=== PATIENT | female | born 1930 | race Hispanic/Latino ===

== ENCOUNTER 2018-11-20 14:03 | Inpatient (IN) | payer MEDICARE ==
[2018-11-20 14:10] VITALS: BMI 25.4
[2018-11-20] MEDS ORDERED: Sodium Chloride 0.9% 1,000 ML IV STA (14:40)
[2018-11-20 14:51] LABS: BASO # 0.01 K/mm3 (0.0-2.0); BASO % 0.1 % (0.0-3.0); HEMOGLOBIN 10.5 g/dL (12.0-16.0); LYMPH # 0.7 (1.2-3.4); LYMPH % 6.8 % (22.0-35.0); MEAN CELL VOLUME 99.4 fl (80.0-105.0); MEAN CORPUSCULAR HGB CONC 31.2 g/dl (31.0-37.0); MEAN PLATELET VOLUME 10.6 fl (7.0-11.0); MONO # 0.4 (0.1-0.6); MONO % 4.3 % (1.0-6.0); RBC 3.39 10^6/uL (3.5-6.1); RED CELL DISTRIBUTION WIDTH 14.9 % (11.5-14.5); WHITE BLOOD COUNT 9.6 10^3/uL (4.5-11.0)
[2018-11-20 15:00] LABS: INR 1.28; PARTIAL THROMBOPLASTIN TIME 33.7 Seconds (26.9-38.3); PROTHROMBIN TIME 14.2 SECONDS (9.4-12.5)
[2018-11-20 15:02] LABS: ALBUMIN 3.7 g/dL (3.0-4.8); ALT/SGPT 35 U/L (7-56); AST/SGOT 39 U/L (14-36); BLOOD UREA NITROGEN 17 mg/dL (7-21); GFR NON-AFRICAN AMERICAN > 60
--- NOTE | 2018-11-20 15:10 | ED PDOC ---
Arrival/HPI - General Chief Complaint: Trauma Time Seen by Provider: 11/20/18 14:05 Historian: Patient - History of Present Illness Narrative History of Present Illness (Text): 11/20/18 15:06 88yo female with past medical history of Anemia bib EMS with complaint of right hip and b/l knee pain s/p trauma last night. Patient states she fell when she wanted to turn on her lamp and couldn't get up from the floor. She states her n eighbor was the one that EMS. She denies LOC, urinary/fecal incontinence, back pain, dizziness, nausea, vomiting, any other complaint. Past Medical History - Provider Review Nursing Documentation Reviewed: Yes - Infectious Disease Hx of Infectious Diseases: None - Tetanus Immunization Tetanus Immunization: Unknown - Cardiac Hx Peripheral Edema: Yes (bilaeral feet and ankles) - Renal Hx Kidney Stones: Yes (removed at [facility]) - Hematological/Oncological Hx Anemia: Yes - Integumentary Other/Comment: bruises to right hip and thigh,right 2nd toe .5cm brown wound, left 2nd toe .5cm scab, dirt between left toes, bilateral groin and under abd pink, scrape to right inner foot - Musculoskeletal/Rheumatological Hx Falls: Yes - Psychiatric Hx Depression: No Hx Emotional Abuse: No Hx Physical Abuse: No Hx Substance Use: No - Past Surgical History Past Surgical History: Unable to Obtain - Surgical History Hx Cholecystectomy: Yes - Suicidal Assessment Feels Threatened In Home Enviroment: No Family/Social History - Physician Review Nursing Documentation Reviewed: Yes Family/Social History: Unknown Family HX Smoking Status: Never Smoked Hx Alcohol Use: No Hx Substance Use: No Hx Substance Use Treatment: No Allergies/Home Meds Allergies/Adverse Reactions: Allergies No Known Allergies Allergy (Verified 03/08/14 10:44) Home Medications: Home Meds Medication Instructions Recorded Confirmed RX: No Known Home Med 11/20/18 11/20/18 Review of Systems - Physician Review All systems were reviewed & negative as marked: Yes - Review of Systems Constitutional: Normal Eyes: Normal ENT: Normal Respiratory: Normal Cardiovascular: Normal Gastrointestinal: Normal Genitourinary Female: Normal Musculoskeletal: Arthralgias (B/L hip and knee pain) Skin: Normal Neurological: Normal Endocrine: Normal Hemo/Lymphatic: Normal Psychiatric: Normal Physical Exam Vital Signs Reviewed: Yes Vital Signs Temp Pulse Resp BP Pulse Ox 11/20/18 14:22 97.8 F 64 18 120/55 L 100 Temperature: Afebrile Blood Pressure: Normal Pulse: Regular Respiratory Rate: Normal Appearance: Positive for: Well-Appearing, Non-Toxic, Comfortable Pain Distress: None Mental Status: Positive for: Alert and Oriented X 3 - Systems Exam Head: Present: Atraumatic, Normocephalic Pupils: Present: PERRL Extroacular Muscles: Present: EOMI Conjunctiva: Present: Normal Mouth: Present: Moist Mucous Membranes Neck: Present: Normal Range of Motion Respiratory/Chest: Present: Clear to Auscultation, Good Air Exchange. No: Respiratory Distress, Accessory Muscle Use Cardiovascular: Present: Regular Rate and Rhythm, Normal S1, S2. No: Murmurs Abdomen: No: Tenderness, Distention, Peritoneal Signs Back: Present: Normal Inspection Upper Extremity: Present: Normal Inspection. No: Cyanosis, Edema Lower Extremity: Present: NORMAL PULSES, Tenderness (Right lateral hip and b/l knee), Neurovascularly Intact, Other (Inverted right foot noted). No: Edema, Normal ROM (Limited on both legs secondary to pain), Swelling, Erythema Neurological: Present: GCS=15, CN II-XII Intact, Speech Normal Skin: Present: Warm, Dry, Normal Color. No: Rashes Psychiatric: Present: Alert, Oriented x 3, Normal Insight, Normal Concentration Medical Decision Making ED Course and Treatment: 11/20/18 17:22 88yo female bib EMS for b/l LE pain s/p trauma last night. PT reports mechanical fall, while trying to turn her light. she was AAO x3 in Emergency department. Neurologically intact. Labs Head CT Hip and knee xray EKG 1LNS Reassess 11/20/18 17:29 EKG NSR @63bpm. LAD Lab was reviewed and elevated CPK was noted, pt is hydrated in ED Head CT IMPRESSION: No intracranial hemorrhage. chest xray Limited study. Elevation of the right hemidiaphragm. Right upper lobe scarring/atelectasis. Cardiomediastinal silhouette appears stable. Marked prominence the right hilum and mediastinum persists. CT of the chest with IV contrast may be considered for further evaluation. B/L hip xray IMPRESSION: No evidence of acute displaced fracture nor dislocation. No evidence of dislocation. Degenerative osteoarthritis both hip joints B/L Knee IMPRESSION: No acute fractures. There is mild lateral joint space narrowing right knee. PT lives by herself and has been unable to ambulate or stand since last night. She will be admitted. Case was DW Dr. stinson who accepted pt for admission. - Lab Interpretations Lab Results: PT 14.2 SECONDS (9.4-12.5) H 11/20/18 14:30 INR 1.28 11/20/18 14:30 APTT 33.7 Seconds (26.9-38.3) 11/20/18 14:30 Total Bilirubin 1.7 mg/dL (0.2-1.3) H 11/20/18 14:30 AST 39 U/L (14-36) H 11/20/18 14:30 ALT 35 U/L (7-56) 11/20/18 14:30 Alkaline Phosphatase 71 U/L (38-126) 11/20/18 14:30 Total Protein 7.3 g/dL (5.8-8.3) 11/20/18 14:30 Albumin 3.7 g/dL (3.0-4.8) 11/20/18 14:30 Globulin 3.6 gm/dL 11/20/18 14:30 Albumin/Globulin Ratio 1.0 (1.1-1.8) L 11/20/18 14:30 - RAD Interpretation Radiology Orders: 11/20/18 14:20 Hip Bilateral [HIP MIN 3V W/ PELVIS ROSA] [RAD] Stat 11/20/18 14:39 HEAD W/O CONTRAST [CT] Stat KNEE W PATELLA BILAT 3 VIEW [RAD] Stat - Medication Orders Current Medication Orders: Sodium Chloride (Sodium Chloride 0.9%) 1,000 mls @ 100 mls/hr IV .Q10H STA Stop: 11/21/18 00:39 Disposition/Present on Arrival - Present on Arrival Any Indicators Present on Arrival: No History of DVT/PE: No History of Uncontrolled Diabetes: No Urinary Catheter: No History of Decub. Ulcer: No History Surgical Site Infection Following: None - Disposition Have Diagnosis and Disposition been Completed?: Yes Diagnosis: Rhabdomyolysis, Hip pain, Inability to ambulate due to hip, Knee pain Disposition: HOSPITALIZED Disposition Time: 17:00 Patient Plan: Admission Patient Problems: Current Active Problems Problem Status Onset Hip pain Acute Inability to ambulate due to hip Acute Knee pain Acute Rhabdomyolysis Acute Condition: FAIR
--- NOTE | 2018-11-20 15:58 | CT ---
Date of service: 11/20/2018 PROCEDURE: CT HEAD WITHOUT CONTRAST. HISTORY: s/p trauma COMPARISON: None available. TECHNIQUE: Axial computed tomography images were obtained through the head/brain without intravenous contrast. Radiation dose: Total exam DLP = 1049.48 mGy-cm. This CT exam was performed using one or more of the following dose reduction techniques: Automated exposure control, adjustment of the mA and/or kV according to patient size, and/or use of iterative reconstruction technique. FINDINGS: HEMORRHAGE: No intracranial hemorrhage. BRAIN: No mass effect or edema. Mild periventricular white matter ischemic disease and atrophy. VENTRICLES: Unremarkable. No hydrocephalus. CALVARIUM: Unremarkable. PARANASAL SINUSES: Unremarkable as visualized. No significant inflammatory changes. MASTOID AIR CELLS: Unremarkable as visualized. No inflammatory changes. OTHER FINDINGS: None. IMPRESSION: No intracranial hemorrhage.
[2018-11-20 16:17] LABS: CK MB% 2.1 % (2.5-3.0); CK-MB 9.8 ng/mL (0.0-3.6); TROPONIN I 0.04 ng/mL
--- NOTE | 2018-11-20 16:33 | RAD ---
Date of service: 11/20/2018 PROCEDURE: Pelvis and bilateral hips 12/07/2018. HISTORY: Right hip pain status post trauma COMPARISON: Comparison made with prior pelvis radiograph 03/08/2014. TECHNIQUE: AP view of the pelvis and both hips and frogleg lateral views both hips performed FINDINGS: No definitive evidence of acute displaced fracture... The osseous structures intact with both femoral heads appropriately located within the respective acetabula. Degenerative osteoarthritis both hip joints IMPRESSION: No evidence of acute displaced fracture nor dislocation. No evidence of dislocation. Degenerative osteoarthritis both hip joints
--- NOTE | 2018-11-20 17:23 | RAD ---
Date of service: 11/20/2018 PROCEDURE: Bilateral Knee Radiographs. HISTORY: knee pain s/p trauma COMPARISON: None. FINDINGS: BONES: No evidence of acute displaced fracture or dislocation. The osseous structures intact. Degenerative changes right JOINTS: There is questionable mild lateral joint space narrowing right knee versus sequela of patient positioning. Small anterior patella enthesophyte formation. There is also mild anterior patella enthesophyte formation left knee as well. SOFT TISSUES: Right Knee: Normal. Left Knee: Normal. JOINT EFFUSION: Right Knee: None. Left Knee: None. OTHER FINDINGS: Mild vascular calcifications IMPRESSION: No acute fractures. There is mild lateral joint space narrowing right knee.
--- NOTE | 2018-11-20 17:46 | RAD ---
HISTORY: admission COMPARISON: Chest x-ray performed 03/08/14, CT chest with IV contrast performed 03/10/14 TECHNIQUE: Chest, one view. FINDINGS: LUNGS: Examination limited by habitus, hypoinflation, and patient obliquity. Right upper lobe scarring/atelectasis. Please note that chest x-ray has limited sensitivity for the detection of pulmonary masses. PLEURA: No significant pleural effusion identified. No definite pneumothorax . CARDIOVASCULAR: Cardiomediastinal silhouette appears stable. Marked prominence the right hilum and mediastinum persists. OSSEOUS STRUCTURES: Osseous demineralization. Degenerative changes. VISUALIZED UPPER ABDOMEN: Elevation of the right hemidiaphragm. OTHER FINDINGS: None. IMPRESSION: Limited study. Elevation of the right hemidiaphragm. Right upper lobe scarring/atelectasis. Cardiomediastinal silhouette appears stable. Marked prominence the right hilum and mediastinum persists. CT of the chest with IV contrast may be considered for further evaluation.
--- NOTE | 2018-11-20 20:12 | CARD ---
APPROVED REPORT Date of service: 11/20/2018 EKG Measurement Heart [id number] <Conclusion> Normal sinus rhythm Left axis deviation Possible Anterior infarct, age undetermined Abnormal ECG
[2018-11-20] MEDS ORDERED: Pneumococcal 23-Valent Vaccine IM ONE (22:32)
[2018-11-20] MEDS ORDERED: Influenza Vaccine 60 mcg/0.5 mL SYR (4YR UP) IM ONE (22:32)
--- NOTE | 2018-11-21 08:28 | HP ---
DATE OF EXAM: 11/21/2018 CHIEF COMPLAINT AND HISTORY OF PRESENT ILLNESS: This is an 88-year-old female who is coming into the hospital with fall. The patient was brought in by EMS because of right hip pain and knee pain. The patient says that she had fallen last night, she had difficulty with walking. She went to turn on her and had a fall and had a difficult time in standing up. She says she lives alone. She was found by her neighbor and the ambulance was called. She denies any loss of consciousness. She has no complaint of any headaches or dizziness. No fevers or chills. No nausea, no vomiting, no abdominal pain, no back pain, no dysuria, no frequency, no nocturia. ALLERGIES: NO KNOWN DRUG ALLERGIES. REVIEW OF SYSTEMS: Referral that is all other review of symptoms within normal limits. She says she has been able to eat. SOCIAL HISTORY: She does not smoke, drink, or use drugs. She lives alone. PAST MEDICAL HISTORY: Kidney stones and osteoarthritis. PAST SURGICAL HISTORY: Cholecystectomy. PHYSICAL EXAMINATION: VITAL SIGNS: Temperature is 97.3, pulse of 80, blood pressure 110/63, respirations 18, O2 saturation 100%. Height is 5 feet, weight is 130 pounds. BMI is 25.4. GENERAL: The patient is lying in bed, comfortable, and in no acute distress. HEENT: Atraumatic and normocephalic. Anicteric sclerae. Moist mucosa. [place] conjunctivae. No oral lesions. NECK: No JVD, anterior and posterior adenopathy, thyromegaly, or bruits. CARDIOVASCULAR: S1 and S2 regular. No murmurs, rubs or gallops. LUNGS: Clear to auscultation bilaterally. No wheezes, rales, or rhonchi. ABDOMEN: Bowel sounds are positive. Soft, nontender and nondistended. No hepatosplenomegaly. No rebound and no guarding. EXTREMITIES: No cyanosis, clubbing, or edema. NEUROLOGIC: No facial asymmetry. Tongue is midline. No uvula deviation. Power is 5/5 upper extremities and lower extremities. Sensation intact in upper extremities and lower extremities. PSYCHIATRIC: She is awake, alert and oriented x3. No anxiety or depression. She has normal affect. GENITOURINARY: No CVA tenderness. VASCULAR: 2+ pulses in the carotid pulses and pedal pulses. SKIN: No erythema or nodules. SPINE: Shows normal curvature. LABORATORY DATA: White count of 9.6, hemoglobin 10.5, platelet count is 221. INR is 1.2. Sodium is 139, potassium 3.8, creatinine 0.7, alk phos of 71, troponin 0.04. Chest x-ray shows elevation of right hemidiaphragm, right upper lobe scarring. Bilateral knees shows no acute fractures. There is mild lateral joint space narrowing in the right knees. CT of the head done shows no intracranial hemorrhages. EKG shows sinus rhythm, left axis deviation with a heart rate of 63. Bilateral hip and pelvis x-ray shows no evidence of acute displaced fracture, no dislocation. There is degenerative osteoarthritis in both hips. ASSESSMENT: 1. Fall. 2. Gait instability. 3. Frailty. 4. Nephrolithiasis. 5. Anemia. PLAN: The patient is going to be admitted to the hospital. She lives alone and had a fall. She has significant arthritis and deconditioned. She will most likely need subacute rehab. I will order physical therapy. She received 1 liter of fluid. She is on Tylenol p.r.n. for pain. The patient is currently comfortable. We will speak to the patient's nephew Cricket to give an update. Nick Denny MD
[2018-11-22] MEDS ORDERED: TraMADol/Apap 37.5/325 mg Tab PO PRN (14:56)
--- NOTE | 2018-11-22 20:03 | PN ---
DATE: 11/22/2018 SUBJECTIVE: The patient is an 88-year-old, seen and examined, complained of left leg pain in the thigh area. She fell at home. Nephew by the bedside, who brought her doughnuts and she seems to be very much interested in eating. PHYSICAL EXAMINATION GENERAL: She is awake, alert, oriented, and able to communicate. VITAL SIGNS: She is afebrile, pulse 72, respirations 18, and blood pressure 115/64. LUNGS: Bilateral fair airflow. No rhonchi or crackle. HEART: S1 and S2 audible. ABDOMEN: Soft and nontender. No rebound. No guarding. NEUROLOGIC: The patient is awake and alert, but somewhat confused and disoriented. EXTREMITIES: Complain of pain in the left knee and the thigh; however, she is able to bend and extend her knee. LABORATORY DATA: There is no new lab available today; however, she had x-ray done. No acute fracture, mild lateral joint space narrowing seen. ASSESSMENT AND PLAN: 1. Status post fall. 2. Deconditioning, difficulty walking. 3. Mild dementia. 4. Left knee osteoarthritis. 5. History of generalized osteoarthritis. 6. History of nephrolithiasis. 7. Chronic anemia. PLAN: Currently, the patient is on IV fluids. I will request to give Mobic daily along with Protonix and will give her tramadol as needed for [id number] pain and need physical therapy evaluation and gait training, probably a good candidate for TCU. Santiago Lambert MD
[2018-11-23 08:30] LABS: BASO # 0.02 K/mm3 (0.0-2.0); BASO % 0.3 % (0.0-3.0); EOS # 0.1 (0.0-0.7); EOS % 1.7 % (1.5-5.0); HEMOGLOBIN 8.9 g/dL (12.0-16.0); LYMPH # 1.6 (1.2-3.4); LYMPH % 26.8 % (22.0-35.0); MEAN CORPUSCULAR HGB CONC 30.7 g/dl (31.0-37.0); MEAN PLATELET VOLUME 10.9 fl (7.0-11.0); MONO # 0.4 (0.1-0.6); MONO % 6.4 % (1.0-6.0); RBC 2.87 10^6/uL (3.5-6.1); WHITE BLOOD COUNT 5.9 10^3/uL (4.5-11.0)
[2018-11-23 08:44] LABS: ALT/SGPT 17 U/L (7-56); AST/SGOT 26 U/L (14-36); BLOOD UREA NITROGEN 31 mg/dL (7-21); CALCIUM 8.2 mg/dL (8.4-10.5); GFR NON-AFRICAN AMERICAN 52
--- NOTE | 2018-11-23 10:13 | CP.PCM.APN ---
Subjective - Date & Time of Evaluation Date of Evaluation: 11/23/18 Time of Evaluation: 09:45 - Subjective Subjective: Pt seen and examined at bedside. In no acute distress. No acute events overnight. Objective - Vital Signs/Intake and Output Vital Signs (last 24 hours): Temp Pulse Resp BP Pulse Ox 98 F 57 L 17 130/62 95 11/23/18 06:00 11/23/18 06:00 11/23/18 06:00 11/23/18 06:00 11/23/18 06:00 Intake and Output: 11/23/18 11/23/18 06:59 18:59 Intake Total 360 Balance 360 - Medications Medications: Current Medications Acetaminophen (Tylenol 325mg Tab) 650 mg PO Q6H PRN PRN Reason: Pain, Mild (1-3) Last Admin: 11/22/18 11:26 Dose: 650 mg Meloxicam (Mobic) 15 mg PO DAILY FADY Last Admin: 11/23/18 09:24 Dose: 15 mg Tramadol/Acetaminophen (Ultracet 37.5/325 Mg) 1 tab PO Q6H PRN PRN Reason: Pain, moderate (4-7) - Labs Labs: 11/23/18 08:00 11/23/18 08:00 PT 14.2 SECONDS (9.4-12.5) H 11/20/18 14:30 INR 1.28 11/20/18 14:30 APTT 33.7 Seconds (26.9-38.3) 11/20/18 14:30 - Constitutional Appears: No Acute Distress - Head Exam Head Exam: NORMOCEPHALIC - Eye Exam Eye Exam: Normal appearance - Neck Exam Neck Exam: Full ROM - Respiratory Exam Respiratory Exam: NORMAL BREATHING PATTERN - Cardiovascular Exam Cardiovascular Exam: REGULAR RHYTHM, +S1, +S2 - GI/Abdominal Exam GI & Abdominal Exam: Soft, Normal Bowel Sounds - Rectal Exam Rectal Exam: Deferred - Extremities Exam Extremities Exam: Normal Inspection - Neurological Exam Neurological Exam: Alert, Awake Assessment and Plan - Assessment and Plan (Free Text) Assessment: Pt is an 88yo female with past medical history of anemia who was brought in by EMS with complaint of right hip and b/l knee pain s/p fall. ITS Impressions Hip/Pelvis X-Ray 11/20/18 14:20 IMPRESSION: No evidence of acute displaced fracture nor dislocation. No evidence of dislocation. Degenerative osteoarthritis both hip joints Head CT 11/20/18 14:39 IMPRESSION: No intracranial hemorrhage. Knee X-Ray 11/20/18 14:39 IMPRESSION: No acute fractures. There is mild lateral joint space narrowing right knee. Chest X-Ray 11/20/18 17:06 IMPRESSION: Limited study. Elevation of the right hemidiaphragm. Right upper lobe scarring/atelectasis. Cardiomediastinal silhouette appears stable. Marked prominence the right hilum and mediastinum persists. CT of the chest with IV contrast may be considered for further evaluation. Plan: Physical Therapy - recommends [facility] Pt medically cleared for dc per PMD SW/CM for dc planning Meds per MAR Will continue to follow
[2018-11-23 16:04] VITALS: BP 114/60; PULSE 78; RESP 18; TEMP 98.2; O2SAT 98
--- NOTE | 2018-11-23 16:56 | CP.PCM.PN ---
<ErnestinaStefanie - Last Filed: 11/23/18 18:15> Subjective - Date & Time of Evaluation Date of Evaluation: 11/23/18 Time of Evaluation: 07:00 - Subjective Subjective: Pgy3 Medicine progress note for Dr. Denny Patient seen and examined at bedside. No acute events overnight. Patient complained of some body aches but otherwise denied fever, headache, dizziness, chest pain, SOB, cough, abd pain, nausea, vomiting, bowel/bladder complaints, swelling in her legs bilaterally. Patient is tolerating PO diet and making good urine. Objective - Vital Signs/Intake and Output Vital Signs (last 24 hours): Temp Pulse Resp BP Pulse Ox 98.2 F 78 18 114/60 98 11/23/18 14:00 11/23/18 14:00 11/23/18 14:00 11/23/18 14:00 11/23/18 14:00 Intake and Output: 11/23/18 11/23/18 06:59 18:59 Intake Total 360 600 Balance 360 600 - Medications Medications: Current Medications Acetaminophen (Tylenol 325mg Tab) 650 mg PO Q6H PRN PRN Reason: Pain, Mild (1-3) Last Admin: 11/22/18 11:26 Dose: 650 mg Meloxicam (Mobic) 15 mg PO DAILY FADY Last Admin: 11/23/18 09:24 Dose: 15 mg Tramadol/Acetaminophen (Ultracet 37.5/325 Mg) 1 tab PO Q6H PRN PRN Reason: Pain, moderate (4-7) - Labs Labs: 11/23/18 08:00 11/23/18 08:00 PT 14.2 SECONDS (9.4-12.5) H 11/20/18 14:30 INR 1.28 11/20/18 14:30 APTT 33.7 Seconds (26.9-38.3) 11/20/18 14:30 - Constitutional Appears: Non-toxic, No Acute Distress - Head Exam Head Exam: ATRAUMATIC, NORMAL INSPECTION, NORMOCEPHALIC - Eye Exam Eye Exam: EOMI, Normal appearance. absent: Conjunctival injection, Scleral icterus - ENT Exam ENT Exam: Mucous Membranes Moist - Neck Exam Neck Exam: Full ROM - Respiratory Exam Respiratory Exam: Clear to Ausculation Bilateral, NORMAL BREATHING PATTERN. absent: Accessory Muscle Use, Rales, Rhonchi, Wheezes, Respiratory Distress - Cardiovascular Exam Cardiovascular Exam: RRR, +S1, +S2. absent: Murmur - GI/Abdominal Exam GI & Abdominal Exam: Soft, Normal Bowel Sounds. absent: Firm, Tenderness - Extremities Exam Extremities Exam: Normal Capillary Refill. absent: Pedal Edema, Tenderness - Neurological Exam Neurological Exam: Alert, Awake, Oriented x3 - Psychiatric Exam Psychiatric exam: Normal Affect, Normal Mood - Skin Skin Exam: Dry, Intact Assessment and Plan - Assessment and Plan (Free Text) Assessment: - Fall - Gait instability - Frailty - Nephrolithiasis - Anemia - Arthritis Plan: Patient's vitals, blood work, and imaging noted in chart. Patient's pain is well controlled on current regimen. Patient walked with PT who recommended [facility]. Will reach out to family regarding discharge plan as patient is refusing LOTUS and would like to go home. Discussed with Dr. Eduin Do pgy3 <Nick Denny - Last Filed: 11/23/18 20:14> Objective - Vital Signs/Intake and Output Vital Signs (last 24 hours): Temp Pulse Resp BP Pulse Ox 98.2 F 78 18 114/60 98 11/23/18 14:00 11/23/18 14:00 11/23/18 14:00 11/23/18 14:00 11/23/18 14:00 Intake and Output: 11/23/18 11/24/18 18:59 06:59 Intake Total 600 Balance 600 - Medications Medications: Current Medications Acetaminophen (Tylenol 325mg Tab) 650 mg PO Q6H PRN PRN Reason: Pain, Mild (1-3) Last Admin: 11/22/18 11:26 Dose: 650 mg Meloxicam (Mobic) 15 mg PO DAILY FADY Last Admin: 11/23/18 09:24 Dose: 15 mg Tramadol/Acetaminophen (Ultracet 37.5/325 Mg) 1 tab PO Q6H PRN PRN Reason: Pain, moderate (4-7) - Labs Labs: 11/23/18 08:00 11/23/18 08:00 PT 14.2 SECONDS (9.4-12.5) H 11/20/18 14:30 INR 1.28 11/20/18 14:30 APTT 33.7 Seconds (26.9-38.3) 11/20/18 14:30 Assessment and Plan - Assessment and Plan (Free Text) Plan: Pt seen and examined by me. I have reviewed the note of the medical doctor md/medical director and I agree with it. I have discussed the assessment and plan with the resident. I have reviewed the medications and the last labs. Pt had a fall. She does not want to go to [facility]. She is asking to go home with her nephew, who will provide extra help at home. Pt is eating well and has no pain. Pt is frail.
--- NOTE | 2018-11-25 07:43 | CP.PCM.DIS ---
<Stefanie Do - Last Filed: 11/25/18 10:20> Provider - Provider Date of Admission: 11/20/18 17:01 Attending physician: Nick Denny MD Primary care physician: Chuy Granados MD Consults: 11/20/18 22:32 Case Management Referral Routine Comment: NEEDS ASSISTANCE AT HOME.LIVES AT [facility] Physician Instructions: Reason For Exam: EVALUATION Reason for Referral: [employer] Eval Nursing Referral for Wound Care Routine Comment: BRUISES FROM FALL Physician Instructions: Reason For Exam: EVALUATION 11/20/18 22:36 Social Work Referral Routine Comment: DISCHARGE PLANNING WITH ASSISTANCE AT HOME Physician Instructions: Reason For Exam: EVALUATION Time Spent in preparation of Discharge (in minutes): 35 Hospital Course - Lab Results Lab Results: Most Recent Lab Values WBC 5.9 10^3/uL (4.5-11.0) D 11/23/18 08:00 RBC 2.87 10^6/uL (3.5-6.1) L 11/23/18 08:00 Hgb 8.9 g/dL (12.0-16.0) L 11/23/18 08:00 Hct 29.0 % (36.0-48.0) L 11/23/18 08:00 MCV 101.0 fl (80.0-105.0) 11/23/18 08:00 MCH 31.0 pg (25.0-35.0) 11/23/18 08:00 MCHC 30.7 g/dl (31.0-37.0) L 11/23/18 08:00 RDW 15.0 % (11.5-14.5) H 11/23/18 08:00 Plt Count 185 10^3/uL (120.0-450.0) 11/23/18 08:00 MPV 10.9 fl (7.0-11.0) 11/23/18 08:00 Neut % (Auto) 64.8 % (50.0-68.0) 11/23/18 08:00 Lymph % (Auto) 26.8 % (22.0-35.0) 11/23/18 08:00 [place] % (Auto) 6.4 % (1.0-6.0) H 11/23/18 08:00 Eos % (Auto) 1.7 % (1.5-5.0) 11/23/18 08:00 Baso % (Auto) 0.3 % (0.0-3.0) 11/23/18 08:00 Lymph # (Auto) 1.6 (1.2-3.4) 11/23/18 08:00 [place] # (Auto) 0.4 (0.1-0.6) 11/23/18 08:00 Eos # (Auto) 0.1 (0.0-0.7) 11/23/18 08:00 Baso # (Auto) 0.02 K/mm3 (0.0-2.0) 11/23/18 08:00 Absolute Neuts (auto) 3.85 (1.4-6.5) 11/23/18 08:00 PT 14.2 SECONDS (9.4-12.5) H 11/20/18 14:30 INR 1.28 11/20/18 14:30 APTT 33.7 Seconds (26.9-38.3) 11/20/18 14:30 Sodium 140 mmol/L (132-148) 11/23/18 08:00 Potassium 3.7 mmol/L (3.6-5.0) 11/23/18 08:00 Chloride 110 mmol/L (98-107) H 11/23/18 08:00 Carbon Dioxide 28 mmol/L (21-33) 11/23/18 08:00 Anion Gap 6 (10-20) L 11/23/18 08:00 BUN 31 mg/dL (7-21) H 11/23/18 08:00 Creatinine 1.0 mg/dl (0.7-1.2) 11/23/18 08:00 Est GFR ( Amer) > 60 11/23/18 08:00 Est GFR (Non-Af Amer) 52 11/23/18 08:00 Random Glucose 90 mg/dL (70-110) 11/23/18 08:00 Calcium 8.2 mg/dL (8.4-10.5) L 11/23/18 08:00 Phosphorus 3.2 mg/dL (2.5-4.5) 11/23/18 08:00 Magnesium 1.9 mg/dL (1.7-2.2) 11/23/18 08:00 Total Bilirubin 0.5 mg/dL (0.2-1.3) 11/23/18 08:00 AST 26 U/L (14-36) 11/23/18 08:00 ALT 17 U/L (7-56) 11/23/18 08:00 Alkaline Phosphatase 55 U/L (38-126) 11/23/18 08:00 Lactate Dehydrogenase 493 U/L (333-699) 11/20/18 14:30 Total Creatine Kinase 76 U/L (35-230) 11/23/18 08:00 CK-MB (CK-2) 9.8 ng/mL (0.0-3.6) H 11/20/18 14:30 CK-MB (CK-2) % 2.1 % (2.5-3.0) L 11/20/18 14:30 Troponin I 0.04 ng/mL D 11/20/18 14:30 Total Protein 6.0 g/dL (5.8-8.3) 11/23/18 08:00 Albumin 3.0 g/dL (3.0-4.8) 11/23/18 08:00 Globulin 3.1 gm/dL 11/23/18 08:00 Albumin/Globulin Ratio 1.0 (1.1-1.8) L 11/23/18 08:00 - Hospital Course Hospital Course: Upon admission 88yo female PMHx OA and nephlithiasis presented s/p fall. Patient came in with right hip and knee pain and difficulty ambulating. She was found by her neighbor after her fall. She denied any LOC or hitting her head and on ROS denied any headache, dizziness, fever, chills, nausea, vomiting, abd pain, back pain, urinary complaints. Hospital Course Patient admitted to med/surg. Head CT unremarkable. Hip/pelvis xray was unremarkable for fracture/dislocation and showed OA of both hips. Knee xray was also unremarkable for fractures. She had a slightly elevated CK 468 and was put on fluids with monitoring of UO. The patient was comfortable and clinically improved. She walked with PT who recommended LOTUS however patient refused and wanted to go home. Patient's nephew Cricket Berkowitz was spoken with in detail and patient was medically optimized for discharge home with outpatient follow up. Discharge Exam - Additional Findings Additional findings: - Constitutional Appears: Non-toxic, No Acute Distress - Head Exam Head Exam: ATRAUMATIC, NORMAL INSPECTION, NORMOCEPHALIC - Eye Exam Eye Exam: EOMI, Normal appearance. absent: Conjunctival injection, Scleral icterus - ENT Exam ENT Exam: Mucous Membranes Moist - Neck Exam Neck Exam: Full ROM - Respiratory Exam Respiratory Exam: Clear to Ausculation Bilateral, NORMAL BREATHING PATTERN. absent: Accessory Muscle Use, Rales, Rhonchi, Wheezes, Respiratory Distress - Cardiovascular Exam Cardiovascular Exam: RRR, +S1, +S2. absent: Murmur - GI/Abdominal Exam GI & Abdominal Exam: Soft, Normal Bowel Sounds. absent: Firm, Tenderness - Extremities Exam Extremities Exam: Normal Capillary Refill. absent: Pedal Edema, Tenderness - Neurological Exam Neurological Exam: Alert, Awake, Oriented x3 - Psychiatric Exam Psychiatric exam: Normal Affect, Normal Mood - Skin Skin Exam: Dry, Intact Discharge Plan - Follow Up Plan Condition: FAIR Disposition: HOME/ ROUTINE Instructions: Rhabdomyolysis, Osteoarthritis, Preventing Falls in the Older Adult, Swelling Additional Instructions: PATIENT BEING DISCHARGE IN CARE OF NEPHEW TO FOLLOW UP WITH A PRIMARY MEDICAL DOCTOR Referrals: Chuy Granados MD [Primary Care Provider] - <Nick Denny - Last Filed: 11/25/18 17:09> Provider - Provider Date of Admission: 11/20/18 17:01 Attending physician: Nick Denny MD Primary care physician: Chuy Granados MD Consults: 11/20/18 22:32 Case Management Referral Routine Comment: NEEDS ASSISTANCE AT HOME.LIVES AT [facility] Physician Instructions: Reason For Exam: EVALUATION Reason for Referral: [employer] Eval Nursing Referral for Wound Care Routine Comment: BRUISES FROM FALL Physician Instructions: Reason For Exam: EVALUATION 11/20/18 22:36 Social Work Referral Routine Comment: DISCHARGE PLANNING WITH ASSISTANCE AT HOME Physician Instructions: Reason For Exam: EVALUATION Hospital Course - Lab Results Lab Results: Most Recent Lab Values WBC 5.9 10^3/uL (4.5-11.0) D 11/23/18 08:00 RBC 2.87 10^6/uL (3.5-6.1) L 11/23/18 08:00 Hgb 8.9 g/dL (12.0-16.0) L 11/23/18 08:00 Hct 29.0 % (36.0-48.0) L 11/23/18 08:00 MCV 101.0 fl (80.0-105.0) 11/23/18 08:00 MCH 31.0 pg (25.0-35.0) 11/23/18 08:00 MCHC 30.7 g/dl (31.0-37.0) L 11/23/18 08:00 RDW 15.0 % (11.5-14.5) H 11/23/18 08:00 Plt Count 185 10^3/uL (120.0-450.0) 11/23/18 08:00 MPV 10.9 fl (7.0-11.0) 11/23/18 08:00 Neut % (Auto) 64.8 % (50.0-68.0) 11/23/18 08:00 Lymph % (Auto) 26.8 % (22.0-35.0) 11/23/18 08:00 [place] % (Auto) 6.4 % (1.0-6.0) H 11/23/18 08:00 Eos % (Auto) 1.7 % (1.5-5.0) 11/23/18 08:00 Baso % (Auto) 0.3 % (0.0-3.0) 11/23/18 08:00 Lymph # (Auto) 1.6 (1.2-3.4) 11/23/18 08:00 [place] # (Auto) 0.4 (0.1-0.6) 11/23/18 08:00 Eos # (Auto) 0.1 (0.0-0.7) 11/23/18 08:00 Baso # (Auto) 0.02 K/mm3 (0.0-2.0) 11/23/18 08:00 Absolute Neuts (auto) 3.85 (1.4-6.5) 11/23/18 08:00 PT 14.2 SECONDS (9.4-12.5) H 11/20/18 14:30 INR 1.28 11/20/18 14:30 APTT 33.7 Seconds (26.9-38.3) 11/20/18 14:30 Sodium 140 mmol/L (132-148) 11/23/18 08:00 Potassium 3.7 mmol/L (3.6-5.0) 11/23/18 08:00 Chloride 110 mmol/L (98-107) H 11/23/18 08:00 Carbon Dioxide 28 mmol/L (21-33) 11/23/18 08:00 Anion Gap 6 (10-20) L 11/23/18 08:00 BUN 31 mg/dL (7-21) H 11/23/18 08:00 Creatinine 1.0 mg/dl (0.7-1.2) 11/23/18 08:00 Est GFR ( Amer) > 60 11/23/18 08:00 Est GFR (Non-Af Amer) 52 11/23/18 08:00 Random Glucose 90 mg/dL (70-110) 11/23/18 08:00 Calcium 8.2 mg/dL (8.4-10.5) L 11/23/18 08:00 Phosphorus 3.2 mg/dL (2.5-4.5) 11/23/18 08:00 Magnesium 1.9 mg/dL (1.7-2.2) 11/23/18 08:00 Total Bilirubin 0.5 mg/dL (0.2-1.3) 11/23/18 08:00 AST 26 U/L (14-36) 11/23/18 08:00 ALT 17 U/L (7-56) 11/23/18 08:00 Alkaline Phosphatase 55 U/L (38-126) 11/23/18 08:00 Lactate Dehydrogenase 493 U/L (333-699) 11/20/18 14:30 Total Creatine Kinase 76 U/L (35-230) 11/23/18 08:00 CK-MB (CK-2) 9.8 ng/mL (0.0-3.6) H 11/20/18 14:30 CK-MB (CK-2) % 2.1 % (2.5-3.0) L 11/20/18 14:30 Troponin I 0.04 ng/mL D 11/20/18 14:30 Total Protein 6.0 g/dL (5.8-8.3) 11/23/18 08:00 Albumin 3.0 g/dL (3.0-4.8) 11/23/18 08:00 Globulin 3.1 gm/dL 11/23/18 08:00 Albumin/Globulin Ratio 1.0 (1.1-1.8) L 11/23/18 08:00 - Hospital Course Hospital Course: Pt seen and examined by me. I have reviewed the note of the medical imaging tech and I agree with it. I have discussed the assessment and plan with the resident. I have reviewed the medications and the last labs. See note from yesterday.
== END 2018-11-23 20:18 | disposition home or self-care (01) | DRG 558 ==
LOC: ED 14:03 → ERH 17:01 → 5RNO 20:14
PROVIDERS: ADMIT Internal Medicine Nephrology; ATTEND Internal Medicine Nephrology
DX: M62.82 Rhabdomyolysis (principal); M17.12 Unilateral primary osteoarthritis, left knee; F03.90 Unspecified dementia, unspecified severity, without behavioral disturbance, psychotic disturbance, mood disturbance, and anxiety; M25.551 Pain in right hip; N20.0 Calculus of kidney; D64.9 Anemia, unspecified; W19.XXXA Unspecified fall, initial encounter; Y92.009 Unspecified place in unspecified non-institutional (private) residence as the place of occurrence of the external cause